=== PATIENT | female | born 1960 | race African-American/Black ===

== ENCOUNTER 2022-09-09 16:12 | Outpatient (CLI) | payer OTHER | END 2022-09-09 16:13 | disposition home or self-care (01) | LOC: CSHRAD 16:12 | PROVIDERS: ATTEND Internal Medicine | DX: R06.02 Shortness of breath (principal) | CPT/HCPCS: 71046 ==

== ENCOUNTER 2024-09-20 14:39 | Outpatient (CLI) | payer MEDICARE, OTHER | END 2024-09-20 14:40 | disposition home or self-care (01) | LOC: CSHMAMMO 14:39 | PROVIDERS: ATTEND Internal Medicine | DX: Z12.31 Encounter for screening mammogram for malignant neoplasm of breast (principal); Z78.0 Asymptomatic menopausal state; Z80.3 Family history of malignant neoplasm of breast | CPT/HCPCS: 77063; 77067; 77080 ==